=== PATIENT | female | born 1985 | race Caucasian/White ===

== ENCOUNTER 2019-02-02 20:44 | Inpatient (IN) | payer OTHER ==
[~2019-02-02] VITALS: Ht 154.9 cm; Wt 53.1 kg
[2019-02-02] MEDS ORDERED: SOD CHLORIDE 0.9% 1,000 ML IV STA (21:16)
[2019-02-02] MEDS ORDERED: ONDANSETRON 4 MG INJ IV STA ×2 (21:16→21:57)
[2019-02-02] MEDS ORDERED: morphine 4 MG/ML VIAL IV STA (21:16)
--- NOTE | 2019-02-02 21:17 | ERD ---
ER Documentation Chief Complaint Chief Complaint ABD PAIN WITH N/V X2DAYS HPI 33-year-old female presenting with severe epigastric pain that she states started today. The pain is stabbing, nonradiating, 10 out of 10, with associated nausea and nonbloody and nonbilious vomiting. No associated diarrhea or constipation. She does have a history of gastritis but is not on medications for this. She denies any fevers or chills. Patient is crying at this time. ROS All systems reviewed and are negative except as per history of present illness. Allergies Allergies: Coded Allergies: No Known Allergy (Unverified , 02/02/19) PMhx/Soc History of Surgery: No Anesthesia Reaction: No Hx Neurological Disorder: No Hx Respiratory Disorders: No Hx Cardiac Disorders: No Hx Psychiatric Problems: Yes (anxiety) Hx Miscellaneous Medical Probl: Yes (fibromyalgia, rheumatoid arthritis) Hx Alcohol Use: Yes Hx Substance Use: Yes (marijuana) Hx Tobacco Use: No FmHx Family History: No diabetes Physical Exam Vitals Vital Signs Date Temp Pulse Resp B/P (MAP) Pulse Ox O2 O2 Flow FiO2 Time Delivery Rate 02/02/19 98.5 109 19 147/64 99 20:47 (91) Physical Exam Const: Crying loudly, in distress due to pain, actively retching Head: Atraumatic Eyes: Normal Conjunctiva ENT: Normal External Ears, Nose and Mouth. Neck: Full range of motion. No meningismus. Resp: Clear to auscultation bilaterally Cardio: Regular rate and rhythm, no murmurs Abd: Soft, epigastric tenderness as well as right lower quadrant tenderness. No rebound or guarding. non distended. Normal bowel sounds Skin: No petechiae or rashes Back: No midline or flank tenderness Ext: No cyanosis, or edema Neur: Awake and alert Psych: Anxious, crying Result Diagram: 02/02/19212402/02/192124 Results 24 hrs Laboratory Tests Test 02/02/19 21:25 02/02/19 21:28 White Blood Count 11.2 10^3/ul Red Blood Count 4.60 10^6/ul Hemoglobin 13.9 g/dl Hematocrit 42.3 % Mean Corpuscular Volume 92.0 fl Mean Corpuscular Hemoglobin 30.2 pg Mean Corpuscular Hemoglobin Concent 32.9 g/dl Red Cell Distribution Width 12.6 % Platelet Count 330 10^3/UL Mean Platelet Volume 10.5 fl Immature Granulocytes % 0.400 % Neutrophils % 80.2 % Lymphocytes % 14.1 % Monocytes % 4.3 % Eosinophils % 0.4 % Basophils % 0.6 % Nucleated Red Blood Cells % 0.0 /100WBC Immature Granulocytes # 0.040 10^3/ul Neutrophils # 9.0 10^3/ul Lymphocytes # 1.6 10^3/ul Monocytes # 0.5 10^3/ul Eosinophils # 0.1 10^3/ul Basophils # 0.1 10^3/ul Nucleated Red Blood Cells # 0.0 10^3/ul Urine Color IVAN Urine Clarity CLOUDY Urine pH 7.0 Urine Specific [place] 1.029 Urine Ketones 2+ mg/dL Urine Nitrite NEGATIVE mg/dL Urine Bilirubin NEGATIVE mg/dL Urine Urobilinogen NEGATIVE mg/dL Urine Leukocyte Esterase 2+ Neftali/ul Urine Microscopic RBC 7 /HPF Urine Microscopic WBC 24 /HPF Urine Squamous Epithelial Cells MANY /HPF Urine Mucus MANY /HPF Urine Hemoglobin NEGATIVE mg/dL Urine Glucose NEGATIVE mg/dL Urine Total Protein 1+ mg/dl Sodium Level 139 mmol/L Potassium Level 3.6 mmol/L Chloride Level 101 mmol/L Carbon Dioxide Level 25 mmol/L Anion Gap 13 Blood Urea Nitrogen 11 mg/dl Creatinine 0.68 mg/dl Est Glomerular Filtrat Rate mL/min > 60 mL/min Glucose Level 181 mg/dl Calcium Level 9.7 mg/dl Total Bilirubin 0.3 mg/dl Direct Bilirubin 0.00 mg/dl Indirect Bilirubin 0.3 mg/dl Aspartate Amino Transf (AST/SGOT) 21 IU/L Alanine Aminotransferase (ALT/SGPT) 23 IU/L Alkaline Phosphatase 108 IU/L Total Protein 8.0 g/dl Albumin 4.6 g/dl Globulin 3.40 g/dl Albumin/Globulin Ratio 1.35 Lipase 30 U/L Ethyl Alcohol Level < 10.0 mg/dl POC Beta HCG, Qualitative NEGATIVE Current Medications Medications Dose Sig/Benja Start Time Status Last (Trade) Ordered Route PRN Stop Time Admin Dose Reason Admin Sodium 1,000 ml @ Q1H STAT 02/02/19 DC 02/02/19 Chloride 1,000 mls/hr IV 21:16 02/02/19 21:20 22:15 Morphine 4 mg ONCE STAT 02/02/19 DC 02/02/19 Sulfate IV 21:16 02/02/19 21:21 (morphine) 21:17 Ondansetron 4 mg ONCE STAT 02/02/19 DC 02/02/19 HCl (Zofran IV 21:16 02/02/19 21:21 Inj) 21:17 Ondansetron 4 mg ONCE STAT 02/02/19 DC 02/02/19 HCl (Zofran IV 21:57 02/02/19 21:56 Inj) 21:58 10 mg ONCE ONCE 02/02/19 DC 02/02/19 Metoclopramid IV 23:00 02/02/19 22:39 e HCl 23:01 (Reglan) Famotidine 20 mg ONCE ONCE 02/02/19 DC 02/02/19 (Pepcid Iv) IV 23:00 02/02/19 22:38 23:01 40 ml ONCE ONCE 02/02/19 DC Miscellaneous PO 23:30 02/02/19 Medication 23:31 (Gi Cocktail (2)) Ondansetron 4 mg BRIDGE ORDER 02/02/19 HCl (Zofran PRN IV 23:30 02/03/19 Inj) NAUSEA/VOMITI 23:29 NG 650 mg ER BRIDGE 02/02/19 Acetaminophen PRN PO 23:30 02/03/19 (Tylenol .MILD PAIN 23:29 Tab) 1-3 OR TEMP 10 mg Q6 IV 02/03/19 Metoclopramid 00:00 e HCl (Reglan) Ondansetron 4 mg Q4H PRN 02/02/19 HCl (Zofran IV NAUSEA 23:30 Inj) AND/OR VOMITING 40 mg DAILY@06 02/03/19 Pantoprazole IV 06:00 (Protonix Iv) Sodium 1,000 ml @ Q10H IV 02/02/19 Chloride 100 mls/hr 23:11 IV Flush 3 ml PER 02/02/19 (NS 3 ml) PROTOCOL IV 23:30 650 mg Q6H PRN 02/02/19 Acetaminophen PO .PAIN 1-3 23:30 (Tylenol OR TEMP Tab) Morphine 2 mg Q4H PRN 02/02/19 Sulfate IV .PAIN 23:30 (morphine) 7-10 Docusate 100 mg Q12H PRN 02/02/19 Sodium PO 23:30 (Colace) .CONSTIPATION Bisacodyl 5 mg DAILY PRN 4/7/19 (Dulcolax) PO 23:30 .CONSTIPATION Haloperidol 2 mg ONCE ONCE 02/02/19 DC 02/02/19 (Haldol) IV 23:30 02/02/19 23:31 23:31 Procedures/MDM EMERGENT LABS AND DIAGNOSTIC STUDIES: Lab Results above were reviewed and interpreted by me. CBC: no anemia or evidence of infection CMP: No evidence of clinically significant electrolyte abnormality, acidosis, renal failure, hypoglycemia, liver disease, or biliary obstruction Lipase: no evidence of pancreatitis UA: Signs of possible infection, however the patient is asymptomatic Radiology Results as interpreted by Radiology below were reviewed by Abdiel Justice MD: CT abdomen and pelvis shows no acute abnormalities Initial Nursing notes reviewed. Previous Medical Records requested via the Electronic Health Record. EMERGENCY DEPARTMENT COURSE / MEDICAL DECISION MAKING: Patient is presenting with a severe epigastric abdominal pain with associated vomiting. She was given multiple doses of antiemetics with analgesics and IV fluids. However her symptoms persisted. Her pain had improved, however the vo miting is continuous and not controllable with medications. This may be secondary to chronic marijuana use as well as gastritis. CT does not show any acute abnormalities. Labs are unremarkable. However the patient will require admission for IV hydration, bowel rest, and treatment of her intractable vomiting. Accepting Care Team: Current data and ongoing care discussed. Time: Time of admission Primary Provider: Dr. Kamran Lee Diagnosis: Primary Impression: Abdominal pain Abdominal location: epigastric Qualified Codes: R10.13 - Epigastric pain Additional Impression: Intractable vomiting Vomiting type: unspecified Nausea presence: with nausea Qualified Codes: R11.2 - Nausea with vomiting, unspecified Condition: DANAE Owens MD Feb 02, 2019 21:17
[2019-02-02] MEDS ORDERED: FAMOTIDINE 20 MG INJ IV ONE (23:00)
[2019-02-02] MEDS ORDERED: METOCLOPRAMIDE 10 MG INJ IV ONE (23:00)
[2019-02-02] MEDS ORDERED: LIDOCAINE/MYLANTA 40 ML BTL PO ONE (23:30)
[2019-02-02] MEDS ORDERED: morphine 2 MG INJ IV PRN (23:30)
[2019-02-02] MEDS ORDERED: HALOPERIDOL 5 MG INJ IV ONE (23:30)
[2019-02-02] MEDS ORDERED: NACL 0.9% 3 ML SYG IV SCH (23:30)
[2019-02-02] MEDS ORDERED: BISACODYL (EC) 5 MG TAB PO PRN (23:30)
[2019-02-02] MEDS ORDERED: DOCUSATE SODIUM 100 MG CAP PO PRN (23:30)
[2019-02-02] MEDS ORDERED: ONDANSETRON 4 MG INJ IV PRN ×2 (23:30)
[2019-02-02] MEDS ORDERED: ACETAMINOPHEN 325 MG TAB PO PRN ×2 (23:30)
--- NOTE | 2019-02-02 23:39 | HP ---
Date/Time of Note Date/Time of Note DATE: 02/02/19 TIME: 23:39 Assessment/Plan VTE Prophylaxis SCD applied (from Nsg): Yes Pharmacological prophylaxis: NA/contraindicated Pharm contraindication: low risk/ambulating Lines/Catheters IV Catheter Type (from Nrsg): Peripheral IV Assessment/Plan Hospital Course This is a 33-year-old female being admitted to the [facility] floor for observation for: #1 abdominal pain with intractable nausea and vomiting: Differential includes dyspepsia, PUD, cyclic vomiting syndrome from possible marijuana use. Patient does have tenderness palpation over the epigastric area, CT scan does not show any acute outer maladies. She does report a history of acid reflux. At the current time will treat with a GI doc cocktail, Protonix. Zofran and Reglan for nausea. Liquid diet as tolerated. Will consult GI for possible endoscopy. Will check a urine drug screen. #2 history of GERD: Protonix, see 1. #3 rheumatoid arthritis: Follow-up outpatient campus recruiter. #4 anxiety: PRN Debbi, I did discuss having a psych consultation as an inpatient however the patient does not want one at the current time. Would benefit from a repeat discussion in the a.m. regarding this. #5 DVT GI prophylaxis: SCDs, no GI prophylaxis indicated Result Diagram: 02/02/19212402/02/192124 Results 24hrs Laboratory Tests Test 02/02/19 21:25 02/02/19 21:28 White Blood Count 11.2 H Red Blood Count 4.60 Hemoglobin 13.9 Hematocrit 42.3 Mean Corpuscular Volume 92.0 Mean Corpuscular Hemoglobin 30.2 Mean Corpuscular Hemoglobin Concent 32.9 Red Cell Distribution Width 12.6 Platelet Count 330 Mean Platelet Volume 10.5 H Immature Granulocytes % 0.400 Neutrophils % 80.2 H Lymphocytes % 14.1 L Monocytes % 4.3 Eosinophils % 0.4 Basophils % 0.6 Nucleated Red Blood Cells % 0.0 Immature Granulocytes # 0.040 H Neutrophils # 9.0 H Lymphocytes # 1.6 Monocytes # 0.5 Eosinophils # 0.1 Basophils # 0.1 Nucleated Red Blood Cells # 0.0 Urine Color IVAN Urine Clarity CLOUDY A Urine pH 7.0 Urine Specific [place] 1.029 Urine Ketones 2+ H Urine Nitrite NEGATIVE Urine Bilirubin NEGATIVE Urine Urobilinogen NEGATIVE Urine Leukocyte Esterase 2+ H Urine Microscopic RBC 7 H Urine Microscopic WBC 24 H Urine Squamous Epithelial Cells MANY A Urine Mucus MANY A Urine Hemoglobin NEGATIVE Urine Glucose NEGATIVE Urine Total Protein 1+ H Sodium Level 139 Potassium Level 3.6 Chloride Level 101 Carbon Dioxide Level 25 Anion Gap 13 Blood Urea Nitrogen 11 Creatinine 0.68 Est Glomerular Filtrat Rate mL/min > 60 Glucose Level 181 Calcium Level 9.7 Total Bilirubin 0.3 Direct Bilirubin 0.00 Indirect Bilirubin 0.3 Aspartate Amino Transf (AST/SGOT) 21 Alanine Aminotransferase (ALT/SGPT) 23 Alkaline Phosphatase 108 Total Protein 8.0 Albumin 4.6 Globulin 3.40 H Albumin/Globulin Ratio 1.35 Lipase 30 Ethyl Alcohol Level < 10.0 H POC Beta HCG, Qualitative NEGATIVE HPI/ROS Admit Date/Time Admit Date/Time Hx of Present Illness Chief complaint: Abdominal pain times 2 days 33-year-old female presenting with severe epigastric pain that she states started today. The pain is stabbing, nonradiating, 10 out of 10, with associated nausea and nonbloody and nonbilious vomiting. No associated diarrhea or constipation. She does have a history of gastritis but is not on medications for this. She denies any fevers or chills. Patient is crying at this time. Patient also does report some dysuria. Patient does report that she smokes marijuana but she states that she does not do it on a regular basis. She does have a history of rheumatoid arthritis and was previously on Enbrel Allergies: NKDA Medications: See LILLI Const: As per HPI Eyes : No pain discharge or redness or change in visual acuity ENT: No pain, sore throat, congestion, congestion, dysphagia or discharge Respiratory: No shortness of breath, cough, sputum, wheezing, or pleuritic pain Cardiovascular: No chest pain, palpitation, PND, or edema GI : As per HPI Genitourinary: As per HPI Musculoskeletal: No joint pain, back pain, neck pain, restricted range of motion in neck or joints Skin: No rash, bruising or hives Neuro: No headache, dizziness, syncope, seizure, focal weakness Endocrine: No polyuria, polydipsia, temperature intolerance Psych: As per HPI PMH/Family/Social Past Medical History Rheumatoid arthritis, acid reflux Medications Current Medications Ondansetron HCl (Zofran Inj) 4 mg BRIDGE ORDER PRN IV NAUSEA/VOMITING; Start 02/02/19 at 23:30; Stop 02/03/19 at 23:29 Acetaminophen (Tylenol Tab) 650 mg ER BRIDGE PRN PO .MILD PAIN 1-3 OR TEMP; Start 02/02/19 at 23:30; Stop 02/03/19 at 23:29 Metoclopramide HCl (Reglan) 10 mg Q6 IV ; Start 02/03/19 at 00:00 Ondansetron HCl (Zofran Inj) 4 mg Q4H PRN IV NAUSEA AND/OR VOMITING; Start 02/02/19 at 23:30 Pantoprazole (Protonix Iv) 40 mg DAILY@06 IV ; Start 02/03/19 at 06:00 Sodium Chloride 1,000 ml @ 100 mls/hr Q10H IV ; Start 02/02/19 at 23:11 IV Flush (NS 3 ml) 3 ml PER PROTOCOL IV ; Start 02/02/19 at 23:30 Acetaminophen (Tylenol Tab) 650 mg Q6H PRN PO .PAIN 1-3 OR TEMP; Start 02/02/19 at 23:30 Morphine Sulfate (morphine) 2 mg Q4H PRN IV .PAIN 7-10; Start 02/02/19 at 23:30 Docusate Sodium (Colace) 100 mg Q12H PRN PO .CONSTIPATION; Start 02/02/19 at 23:30 Bisacodyl (Dulcolax) 5 mg DAILY PRN PO .CONSTIPATION; Start 02/02/19 at 23:30 Coded Allergies: No Known Allergy (Unverified , 02/02/19) Past Surgical History Past Surgical Hx: no surgical history Family History Significant Family History: no pertinent family hx Social History Alcohol Use: none Smoking Status: Never smoker Drug Use: marijuana Exam/Review of Systems Vital Signs Vitals Vital Signs Date Temp Pulse Resp B/P (MAP) Pulse Ox O2 O2 Flow FiO2 Time Delivery Rate 02/02/19 16 122/71 95 Room Air 23:34 (88) 02/02/19 98.5 109 20:47 Exam Exam General: Lying in bed emotional, she is crying states that she feels anxious. HEENT: Atraumatic, normocephalic. The pupils are equal, round and reactive. Extraocular motor are intact Neck: Supple with full range of motion. No rigidity or meningismus Chest: Nontender Lungs: Clear to auscultation bilaterally no crackles rales or wheezing Heart: Normal S1-S2, Regular rhythm and rate. No murmur, S3, or S4 Abdomen: Soft , mild epigastric tenderness palpation, mild suprapubic tenderness palpation nontender, nondistended , bowel sounds are present. No guarding no rebound tenderness , No masses or organomegaly. No costovertebral temporal angle mass Extremities: Normal to inspection, no edema no cyanosis Neurologic: Normal mental status, speech normal, cranial nerves II through XII are intact, motor and sensory are intact, Additional Comments PROCEDURE: CT Abdomen and Pelvis without contrast. CLINICAL INDICATION: Abdominal pain. TECHNIQUE: CT scan of the abdomen and pelvis was performed on a multi-detector high-resolution CT scanner. The patient was scanned without contrast administration. Coronal and sagittal reformatted images were obtained from the axial source images. Images were reviewed on a high-resolution PACS workstation. The total exam CTDI equals 5 mGy and the total exam DLP equals 256 mGy-cm. DICOM images are available. 3-D reconstructions were not performed. One or more of the following dose reduction techniques were utilized: 1.) Automated exposure control 2.) Adjustment of the mA +/- kV according to patient's size 3.) Use of iterative reconstruction technique. COMPARISON: None. FINDINGS: CT abdomen: Heart (where visible): Unremarkable. Lung bases: Calcified granuloma in the right middle lobe. Liver: Mildly enlarged measuring 17.9 cm in length with a a relatively large left lobe as well.. No visible focal mass. Biliary ductal system: No evidence of significant dilatation. Gallbladder: No wall thickening, visible intraluminal stone, or pericholecystic inflammatory change. Pancreas: Unremarkable. Stomach: No identifiable focal mass or gross wall thickening. Spleen: No gross splenomegaly. Abdominal colon: Normal in caliber and course. Abdominal small bowel: Normal in caliber, course, and mucosal pattern. Adrenal glands: No visible masses. Right Kidney: Normal in size and contour without focal mass or collecting system dilatation. No visible calcifications. Left kidney: Normal in size and contour without focal mass or collecting system dilatation. No visible calcifications. Abdominal aorta: Normal caliber. Lymph nodes: No significantly enlarged nodes. CT pelvis: Pelvic colon: Normal in caliber and course. No evidence of inflammatory change. Pelvic small bowel: Normal in caliber and course. Appendix: Identified. No evidence of inflammation. Urinary bladder: Normal in size and contour without visible wall thickening. Reproductive structures: The uterus is normal in size. There is no evidence of significant adnexal mass or cyst. There is a minimal amount of free fluid in the left posterior pelvis, within physiologic limits of normal. Bony structures included in the scan: No clinically significant abnormalities. IMPRESSION: 1. 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 2. Mild hepatomegaly. 3. Otherwise unremarkable CT of the abdomen and pelvis with no evidence of bowel obstruction, bowel perforation, urinary tract stone, urinary tract obstruction, or focal inflammatory process. RPTAT:AAJJ Physician Franca Date Time Electronically viewed and signed by Physician Franca on 02/02/2019 22:26 GW/ CC: DANAE LIZ MD [id number] JOHN PAUL RANGEL Feb 02, 2019 23:39
[2019-02-03] VITALS: BP 120/63; PULSE 68; RESP 18; Ht 154.9 cm; Wt 53.1 kg
[2019-02-03] MEDS: METOCLOPRAMIDE 10 MG INJ IV SCH ×3 (00:20→11:53)
[2019-02-03] MEDS: SOD CHLORIDE 0.9% 1,000 ML IV SCH ×4 (00:20→21:51)
[2019-02-03 02:00] VITALS: BP 105/67; PULSE 59; RESP 18
[2019-02-03] MEDS ORDERED: LORAZEPAM 2 MG INJ IV ONE (05:00)
[2019-02-03] MEDS: PANTOPRAZOLE 40 MG INJ IV SCH (05:05)
[2019-02-03 07:20] VITALS: BP 111/62; PULSE 62; RESP 19
[2019-02-03] MEDS ORDERED: CEFTRIAXONE 1 GM/50 ML (PMX) 50 ML IVPB ONE (07:30)
[2019-02-03] MEDS ORDERED: LORAZEPAM 0.5 MG TAB PO PRN (09:00)
--- NOTE | 2019-02-03 12:14 | PN ---
Date/Time of Note Date/Time of Note DATE: 02/03/19 TIME: 12:09 Assessment/Plan VTE Prophylaxis Risk score (from Nsg)>0 risk: 1 SCD applied (from Nsg): Yes Pharmacological prophylaxis: other Lines/Catheters IV Catheter Type (from Nrs): Saline Lock Assessment/Plan Hospital Course S: Patient still with nausea and vomiting symptoms, denies any upper or lower GI bleeding. Waiting to be seen by GI team. O: VS - see below PE: General: Lying in bed, less emotional now, family member at bedside HEENT: Atraumatic, normocephalic. The pupils are equal, round and reactive. Extraocular motor are intact Neck: Supple with full range of motion. No rigidity or meningismus Chest: Nontender Lungs: Clear to auscultation bilaterally no crackles rales or wheezing Heart: Normal S1-S2, Regular rhythm and rate. No murmur, S3, or S4 Abdomen: Soft , mild epigastric tenderness palpation, mild suprapubic tenderness palpation nontender, nondistended , bowel sounds are present. No guarding no rebound tenderness , No masses or organomegaly. No costovertebral temporal angle mass Extremities: Normal to inspection, no edema no cyanosis Neurologic: No focal deficits A/P: 33-year-old female being [facility] for observation for: #1 abdominal pain with intractable nausea and vomiting: Differential includes dyspepsia, PUD, cyclic vomiting syndrome from possible marijuana use. Patient does have tenderness palpation over the epigastric area, CT scan does not show any acute outer maladies. She does report a history of acid reflux. Drug screen showed positive marijuana and opiates. -Continue IV fluids, Protonix. Zofran and Reglan for nausea. N.p.o. for now. -Follow recommendations from GI team for possible endoscopy. #2 history of GERD: Protonix, see 1. #3 rheumatoid arthritis: Follow-up outpatient territory representative. #4 anxiety: Monitor, PRN Ativan -If worsens, consider psychiatry consult Result Diagram: 02/03/19 0433 02/03/19 0433 Results 24hrs Laboratory Tests Test 02/02/19 21:25 02/02/19 21:28 02/03/19 04:30 02/03/19 04:33 White Blood Count 11.2 H 11.2 H Red Blood Count 4.60 4.15 L Hemoglobin 13.9 12.5 Hematocrit 42.3 38.2 Mean Corpuscular Volume 92.0 92.0 Mean Corpuscular 30.2 30.1 Hemoglobin Mean Corpuscular 32.9 32.7 Hemoglobin Concent Red Cell Distribution 12.6 13.0 Width Platelet Count 330 258 # Mean Platelet Volume 10.5 H 10.9 H Immature Granulocytes % 0.400 0.300 Neutrophils % 80.2 H 95.7 H Lymphocytes % 14.1 L 3.1 L Monocytes % 4.3 0.7 Eosinophils % 0.4 0.0 Basophils % 0.6 0.2 Nucleated Red Blood 0.0 0.0 Cells % Immature Granulocytes # 0.040 H 0.030 Neutrophils # 9.0 H 10.7 H Lymphocytes # 1.6 0.4 L Monocytes # 0.5 0.1 L Eosinophils # 0.1 0.0 Basophils # 0.1 0.0 Nucleated Red Blood 0.0 0.0 Cells # Urine Color IVAN Urine Clarity CLOUDY A Urine pH 7.0 Urine Specific [place] 1.029 Urine Ketones 2+ H Urine Nitrite NEGATIVE Urine Bilirubin NEGATIVE Urine Urobilinogen NEGATIVE Urine Leukocyte Esterase 2+ H Urine Microscopic RBC 7 H Urine Microscopic WBC 24 H Urine Squamous MANY A Epithelial Cells Urine Mucus MANY A Urine Hemoglobin NEGATIVE Urine Glucose NEGATIVE Urine Total Protein 1+ H Sodium Level 139 139 Potassium Level 3.6 4.7 Chloride Level 101 105 Carbon Dioxide Level 25 24 Anion Gap 13 10 Blood Urea Nitrogen 11 9 Creatinine 0.68 0.58 Est Glomerular Filtrat > 60 > 60 Rate mL/min Glucose Level 181 168 Calcium Level 9.7 8.8 Total Bilirubin 0.3 0.3 Direct Bilirubin 0.00 0.00 Indirect Bilirubin 0.3 0.3 Aspartate Amino 21 20 Transf (AST/SGOT) Alanine 23 16 Aminotransferase (ALT/SG PT) Alkaline Phosphatase 108 83 Total Protein 8.0 7.0 # Albumin 4.6 4.1 Globulin 3.40 H 2.90 Albumin/Globulin Ratio 1.35 1.41 Lipase 30 Ethyl Alcohol Level < 10.0 H POC Beta HCG, NEGATIVE Qualitative Free Thyroxine 0.92 Free Triiodothyronine 3.14 (T3) pg/mL Hemoglobin A1c 5.1 Magnesium Level 1.9 Triglycerides Level 95 Cholesterol Level 132 LDL Cholesterol, 43 Calculated HDL Cholesterol 70 Cholesterol/HDL Ratio 1.8 Thyroid Stimulating 0.457 L Hormone (TSH) Test 02/03/19 04:45 Urine Opiates Screen Positive Urine Barbiturates Negative Urine Amphetamines Negative Screen Urine Benzodiazepines Negative Screen Urine Cocaine Screen Negative Urine Cannabinoids Positive Exam/Review of Systems Exam Vitals Vital Signs Date Temp Pulse Resp B/P (MAP) Pulse Ox O2 O2 Flow FiO2 Time Delivery Rate 02/03/19 97.2 62 19 111/62 98 07:20 (78) 02/02/19 Room Air 23:39 Intake and Output 02/02/19 02/02/19 02/03/19 1515:00 23:00 07:00 IntakeIntake Total 450 ml BalanceBalance 450 ml Results Results 24hrs Laboratory Tests Test 02/02/19 21:25 02/02/19 21:28 02/03/19 04:30 02/03/19 04:33 White Blood Count 11.2 H 11.2 H Red Blood Count 4.60 4.15 L Hemoglobin 13.9 12.5 Hematocrit 42.3 38.2 Mean Corpuscular Volume 92.0 92.0 Mean Corpuscular 30.2 30.1 Hemoglobin Mean Corpuscular 32.9 32.7 Hemoglobin Concent Red Cell Distribution 12.6 13.0 Width Platelet Count 330 258 # Mean Platelet Volume 10.5 H 10.9 H Immature Granulocytes % 0.400 0.300 Neutrophils % 80.2 H 95.7 H Lymphocytes % 14.1 L 3.1 L Monocytes % 4.3 0.7 Eosinophils % 0.4 0.0 Basophils % 0.6 0.2 Nucleated Red Blood 0.0 0.0 Cells % Immature Granulocytes # 0.040 H 0.030 Neutrophils # 9.0 H 10.7 H Lymphocytes # 1.6 0.4 L Monocytes # 0.5 0.1 L Eosinophils # 0.1 0.0 Basophils # 0.1 0.0 Nucleated Red Blood 0.0 0.0 Cells # Urine Color IVAN Urine Clarity CLOUDY A Urine pH 7.0 Urine Specific [place] 1.029 Urine Ketones 2+ H Urine Nitrite NEGATIVE Urine Bilirubin NEGATIVE Urine Urobilinogen NEGATIVE Urine Leukocyte Esterase 2+ H Urine Microscopic RBC 7 H Urine Microscopic WBC 24 H Urine Squamous MANY A Epithelial Cells Urine Mucus MANY A Urine Hemoglobin NEGATIVE Urine Glucose NEGATIVE Urine Total Protein 1+ H Sodium Level 139 139 Potassium Level 3.6 4.7 Chloride Level 101 105 Carbon Dioxide Level 25 24 Anion Gap 13 10 Blood Urea Nitrogen 11 9 Creatinine 0.68 0.58 Est Glomerular Filtrat > 60 > 60 Rate mL/min Glucose Level 181 168 Calcium Level 9.7 8.8 Total Bilirubin 0.3 0.3 Direct Bilirubin 0.00 0.00 Indirect Bilirubin 0.3 0.3 Aspartate Amino 21 20 Transf (AST/SGOT) Alanine 23 16 Aminotransferase (ALT/SG PT) Alkaline Phosphatase 108 83 Total Protein 8.0 7.0 # Albumin 4.6 4.1 Globulin 3.40 H 2.90 Albumin/Globulin Ratio 1.35 1.41 Lipase 30 Ethyl Alcohol Level < 10.0 H POC Beta HCG, NEGATIVE Qualitative Free Thyroxine 0.92 Free Triiodothyronine 3.14 (T3) pg/mL Hemoglobin A1c 5.1 Magnesium Level 1.9 Triglycerides Level 95 Cholesterol Level 132 LDL Cholesterol, 43 Calculated HDL Cholesterol 70 Cholesterol/HDL Ratio 1.8 Thyroid Stimulating 0.457 L Hormone (TSH) Test 02/03/19 04:45 Urine Opiates Screen Positive Urine Barbiturates Negative Urine Amphetamines Negative Screen Urine Benzodiazepines Negative Screen Urine Cocaine Screen Negative Urine Cannabinoids Positive Medications Medication Current Medications Metoclopramide HCl (Reglan) 10 mg Q6 IV Last administered on 02/03/19at 11:53; Admin Dose 10 MG; Start 02/03/19 at 00:00 Ondansetron HCl (Zofran Inj) 4 mg Q4H PRN IV NAUSEA AND/OR VOMITING Last administered on 02/03/19at 10:43; Admin Dose 4 MG; Start 02/02/19 at 23:30 Pantoprazole (Protonix Iv) 40 mg DAILY@06 IV Last administered on 02/03/19at 05:05; Admin Dose 40 MG; Start 02/03/19 at 06:00 Sodium Chloride 1,000 ml @ 100 mls/hr Q10H IV Last administered on 02/03/19at 00:20; Admin Dose 100 MLS/HR; Start 02/02/19 at 23:11 IV Flush (NS 3 ml) 3 ml PER PROTOCOL IV ; Start 02/02/19 at 23:30 Acetaminophen (Tylenol Tab) 650 mg Q6H PRN PO .PAIN 1-3 OR TEMP; Start 02/02/19 at 23:30 Morphine Sulfate (morphine) 2 mg Q4H PRN IV .PAIN 7-10; Start 02/02/19 at 23:30 Docusate Sodium (Colace) 100 mg Q12H PRN PO .CONSTIPATION; Start 02/02/19 at 23:30 Bisacodyl (Dulcolax) 5 mg DAILY PRN PO .CONSTIPATION; Start 02/02/19 at 23:30 Lorazepam (Ativan) 0.5 mg BID PRN PO ANXIETY; Start 02/03/19 at 09:00 Ceftriaxone Sodium 50 ml @ 100 mls/hr Q24H IVPB ; Start 02/04/19 at 09:00 ROSALINDA WILSON Feb 03, 2019 12:14
[2019-02-03] MEDS ORDERED: CEFTRIAXONE 1 GM/50 ML (PMX) 50 ML IVPB SCH (12:30)
[2019-02-03] MEDS ORDERED: ONDANSETRON INJ 8 MG in SOD CHLORIDE 0.9% 50 ML IV PRN (12:30)
[2019-02-03 15:12] VITALS: BP 118/58; PULSE 58; RESP 18
--- NOTE | 2019-02-03 16:24 | CONS ---
Assessment/Plan Assessment/Plan Hospital Course (Demo Recall) Summary Assessment and Plan: Assessment: Epigastric pain associate with nausea and vomiting -Rule out severe gastritis versus cannabinoid induced cyclic vomiting syndrome his other UTI Marijuana use Plan: Continue PPI Pt on ABX for UTI N.p.o. except ice chips Continue supportive measures EGD tomorrow Endoscopy - risks/benefits/alternatives/indications of procedure and sedation/anesthesia discussed with patient who states understanding and gives informed consent to proceed. Patient seen in collaboration with Dr. Chong CC: LUCERO CHONG MD ; Consultation Date/Type/Reason Admit Date/Time Date of Consultation: Feb 03, 2019 Type of Consult GI Reason for Consultation Epigastric pain with associated N/V Date/Time of Note DATE: 02/03/19 TIME: 16:09 Hx of Present Illness This is a 33-year-old patient with a past medical history of gastritis, and rheumatoid arthritis. Who presented to the ED with complaints of severe epiga stric pain today with nausea nonbloody vomiting times 1 day. She has been consulted for further evaluation. Patient notes she smokes marijuana every other day for the past 5 years she states she has had similar symptoms in the past and had an upper endoscopy about 2 years ago found to have gastritis. She currently denies overt signs of GI bleed i.e. melena, hematemesis, or hematochezia. She additionally denies constipation, unintentional weight loss, or diarrhea. She continues to complain of severe epigastric pain worse with palpation she does take NSAIDs about once a month during her menses. With workup and found to have a UTI has been started on antibiotics which may play a role with nausea and vomiting however unlikely causing epigastric pain we will need to rule out GI etiology therefore we will plan to do EGD tomorrow I reviewed risk/benefits of both procedure and sedation patient verbalized understanding is agreeable to EGD. Review of Systems: A 12 system, review was conducted and is negative except as noted in the HPI or here. Past Medical History Medications Current Medications Pantoprazole (Protonix Iv) 40 mg DAILY@06 IV Last administered on 02/03/19at 05:05; Admin Dose 40 MG; Start 02/03/19 at 06:00 Sodium Chloride 1,000 ml @ 100 mls/hr Q10H IV Last administered on 02/03/19at 16:02; Admin Dose 100 MLS/HR; Start 02/02/19 at 23:11 IV Flush (NS 3 ml) 3 ml PER PROTOCOL IV ; Start 02/02/19 at 23:30 Acetaminophen (Tylenol Tab) 650 mg Q6H PRN PO .PAIN 1-3 OR TEMP; Start 02/02/19 at 23:30 Docusate Sodium (Colace) 100 mg Q12H PRN PO .CONSTIPATION; Start 02/02/19 at 23:30 Bisacodyl (Dulcolax) 5 mg DAILY PRN PO .CONSTIPATION; Start 02/02/19 at 23:30 Lorazepam (Ativan) 0.5 mg BID PRN PO ANXIETY; Start 02/03/19 at 09:00 Ceftriaxone Sodium 50 ml @ 100 mls/hr Q24H IVPB ; Start 02/04/19 at 09:00 Metoclopramide HCl (Reglan) 10 mg Q6 PRN IV NAUSEA; Start 02/03/19 at 12:30 Morphine Sulfate (morphine) 1 mg Q4H PRN IV .PAIN 7-10; Start 02/03/19 at 15:30 Ondansetron HCl 8 mg/Sodium Chloride 54 ml @ 216 mls/hr Q6H PRN IV NAUSEA AND/OR VOMITING; Start 02/03/19 at 12:30 Allergies: Coded Allergies: No Known Allergy (Unverified , 02/02/19) Past Surgical History Past Surgical Hx: no surgical history Social History Alcohol Use: none Smoking Status: Never smoker Drug Use: marijuana Exam/Review of Systems Exam Vitals Vital Signs Date Temp Pulse Resp B/P (MAP) Pulse Ox O2 O2 Flow FiO2 Time Delivery Rate 02/03/19 58 18 118/58 96 15:12 (78) 02/03/19 97.2 07:20 02/02/19 Room Air 23:39 Intake and Output 02/02/19 02/02/19 02/03/19 1515:00 23:00 07:00 IntakeIntake Total 450 ml BalanceBalance 450 ml Exam PHYSICAL EXAMINATION: GENERAL: Alert & oriented x 3, in no acute distress SKIN: No lesions HEAD: Normocephalic, atraumatic, no tenderness. EYES: Pupils equal reactive to light, no discharge. EARS/NOSE AND THROAT: Ears normal, nose normal. NECK: Supple, no masses CHEST: Inspection within normal limits. CARDIOVASCULAR: Heart: Regular rate and rhythm RESPIRATORY: Lungs clear to auscultation GASTROINTESTINAL AND LIVER: Abdomen: Soft, epigastric pain, non-distended, no hernias, no masses, no organomegaly, no ascites, no guarding, no rebound tenderness, normoactive bowel sounds. Rectal: Deferred. EXTREMITIES: No cyanosis, clubbing or edema. Results Result Diagram: 02/03/19 0433 02/03/19 0433 Results 24hrs Laboratory Tests Test 02/02/19 21:25 02/02/19 21:28 02/03/19 04:30 02/03/19 04:33 White Blood Count 11.2 H 11.2 H Red Blood Count 4.60 4.15 L Hemoglobin 13.9 12.5 Hematocrit 42.3 38.2 Mean Corpuscular Volume 92.0 92.0 Mean Corpuscular 30.2 30.1 Hemoglobin Mean Corpuscular 32.9 32.7 Hemoglobin Concent Red Cell Distribution 12.6 13.0 Width Platelet Count 330 258 # Mean Platelet Volume 10.5 H 10.9 H Immature Granulocytes % 0.400 0.300 Neutrophils % 80.2 H 95.7 H Lymphocytes % 14.1 L 3.1 L Monocytes % 4.3 0.7 Eosinophils % 0.4 0.0 Basophils % 0.6 0.2 Nucleated Red Blood 0.0 0.0 Cells % Immature Granulocytes # 0.040 H 0.030 Neutrophils # 9.0 H 10.7 H Lymphocytes # 1.6 0.4 L Monocytes # 0.5 0.1 L Eosinophils # 0.1 0.0 Basophils # 0.1 0.0 Nucleated Red Blood 0.0 0.0 Cells # Urine Color IVAN Urine Clarity CLOUDY A Urine pH 7.0 Urine Specific [place] 1.029 Urine Ketones 2+ H Urine Nitrite NEGATIVE Urine Bilirubin NEGATIVE Urine Urobilinogen NEGATIVE Urine Leukocyte Esterase 2+ H Urine Microscopic RBC 7 H Urine Microscopic WBC 24 H Urine Squamous MANY A Epithelial Cells Urine Mucus MANY A Urine Hemoglobin NEGATIVE Urine Glucose NEGATIVE Urine Total Protein 1+ H Sodium Level 139 139 Potassium Level 3.6 4.7 Chloride Level 101 105 Carbon Dioxide Level 25 24 Anion Gap 13 10 Blood Urea Nitrogen 11 9 Creatinine 0.68 0.58 Est Glomerular Filtrat > 60 > 60 Rate mL/min Glucose Level 181 168 Calcium Level 9.7 8.8 Total Bilirubin 0.3 0.3 Direct Bilirubin 0.00 0.00 Indirect Bilirubin 0.3 0.3 Aspartate Amino 21 20 Transf (AST/SGOT) Alanine 23 16 Aminotransferase (ALT/SG PT) Alkaline Phosphatase 108 83 Total Protein 8.0 7.0 # Albumin 4.6 4.1 Globulin 3.40 H 2.90 Albumin/Globulin Ratio 1.35 1.41 Lipase 30 Ethyl Alcohol Level < 10.0 H POC Beta HCG, NEGATIVE Qualitative Free Thyroxine 0.92 Free Triiodothyronine 3.14 (T3) pg/mL Hemoglobin A1c 5.1 Magnesium Level 1.9 Triglycerides Level 95 Cholesterol Level 132 LDL Cholesterol, 43 Calculated HDL Cholesterol 70 Cholesterol/HDL Ratio 1.8 Thyroid Stimulating 0.457 L Hormone (TSH) Test 02/03/19 04:45 Urine Opiates Screen Positive Urine Barbiturates Negative Urine Amphetamines Negative Screen Urine Benzodiazepines Negative Screen Urine Cocaine Screen Negative Urine Cannabinoids Positive Medications Medication Current Medications Pantoprazole (Protonix Iv) 40 mg DAILY@06 IV Last administered on 02/03/19at 05:05; Admin Dose 40 MG; Start 02/03/19 at 06:00 Sodium Chloride 1,000 ml @ 100 mls/hr Q10H IV Last administered on 02/03/19at 16:02; Admin Dose 100 MLS/HR; Start 02/02/19 at 23:11 IV Flush (NS 3 ml) 3 ml PER PROTOCOL IV ; Start 02/02/19 at 23:30 Acetaminophen (Tylenol Tab) 650 mg Q6H PRN PO .PAIN 1-3 OR TEMP; Start 02/02/19 at 23:30 Docusate Sodium (Colace) 100 mg Q12H PRN PO .CONSTIPATION; Start 02/02/19 at 23:30 Bisacodyl (Dulcolax) 5 mg DAILY PRN PO .CONSTIPATION; Start 02/02/19 at 23:30 Lorazepam (Ativan) 0.5 mg BID PRN PO ANXIETY; Start 02/03/19 at 09:00 Ceftriaxone Sodium 50 ml @ 100 mls/hr Q24H IVPB ; Start 02/04/19 at 09:00 Metoclopramide HCl (Reglan) 10 mg Q6 PRN IV NAUSEA; Start 02/03/19 at 12:30 Morphine Sulfate (morphine) 1 mg Q4H PRN IV .PAIN 7-10; Start 02/03/19 at 15:30 Ondansetron HCl 8 mg/Sodium Chloride 54 ml @ 216 mls/hr Q6H PRN IV NAUSEA AND/OR VOMITING; Start 02/03/19 at 12:30 HERMILO BEAR Feb 03, 2019 16:19
[2019-02-03] MEDS ORDERED: ONDANSETRON 4 MG INJ IV PRN (17:30)
--- NOTE | 2019-02-03 17:41 | PREAC ---
Date/Time of Note Date/Time of Note DATE: 02/03/19 TIME: 17:41 Anesthesia Eval and Record Evaluation Time Pre-Procedure Interview DATE: 02/03/19 TIME: 17:41 Age 33 Sex female NPO: 8 hrs Preoperative diagnosis nausea / vomiting Planned procedure EGD Past Medical History Past Medical History: Includes GI: GERD Psych: Anxiety Surgery & Anesthesia Issues No known issue Meds Anticoagulation: No Beta Rosita within 24 hr: No Reason Beta Rosita not given: Pt. not on B-Rosita Current Medications Pantoprazole (Protonix Iv) 40 mg DAILY@06 IV Last administered on 02/03/19at 05:05; Admin Dose 40 MG; Start 02/03/19 at 06:00 Sodium Chloride 1,000 ml @ 100 mls/hr Q10H IV Last administered on 02/03/19at 16:02; Admin Dose 100 MLS/HR; Start 02/02/19 at 23:11 IV Flush (NS 3 ml) 3 ml PER PROTOCOL IV ; Start 02/02/19 at 23:30 Acetaminophen (Tylenol Tab) 650 mg Q6H PRN PO .PAIN 1-3 OR TEMP; Start 02/02/19 at 23:30 Docusate Sodium (Colace) 100 mg Q12H PRN PO .CONSTIPATION; Start 02/02/19 at 23:30 Bisacodyl (Dulcolax) 5 mg DAILY PRN PO .CONSTIPATION; Start 02/02/19 at 23:30 Lorazepam (Ativan) 0.5 mg BID PRN PO ANXIETY; Start 02/03/19 at 09:00 Ceftriaxone Sodium 50 ml @ 100 mls/hr Q24H IVPB ; Start 02/04/19 at 09:00 Metoclopramide HCl (Reglan) 10 mg Q6 PRN IV NAUSEA; Start 02/03/19 at 12:30 Morphine Sulfate (morphine) 1 mg Q4H PRN IV .PAIN 7-10; Start 02/03/19 at 15:30 Ondansetron HCl 8 mg/Sodium Chloride 54 ml @ 216 mls/hr Q6H PRN IV NAUSEA AND/OR VOMITING; Start 02/03/19 at 12:30 Meds reviewed: Yes Allergies Coded Allergies: No Known Allergy (Unverified , 02/02/19) Allergies Reviewed: Yes Labs/Studies Labs Reviewed: Reviewed by anesthesiologist Result Diagram: 02/03/19 0433 02/03/19 0433 Laboratory Tests 02/03/19 04:33 test: Negative Pre-procedure Exam Last vitals Vital Signs Date Temp Pulse Resp B/P (MAP) Pulse Ox O2 O2 Flow FiO2 Time Delivery Rate 02/03/19 58 18 118/58 96 15:12 (78) 02/03/19 97.2 07:20 02/02/19 Room Air 23:39 Airway: Adequate mouth opening Mallampati: Mallampati II Teeth: Normal Lung: Normal Heart: Normal ASA Physical Status ASA physical status: 2 Emergency: None Planned Anesthetic General/MAC: MAC Pre-operative Attestations Prior to commencing anesthesia and surgery, the patient was re-evaluated, there was verification of: *The patient's identity *The results of appropriate recent lab work and preoperative vital signs *The above evaluation not changing prior to induction *Anesthetic plan, risk benefits, alternative and complications discussed with patient/family; questions answered; patient/family understands, accepts and w ishes to proceed. GRACE SCHRADER Feb 03, 2019 17:41
[2019-02-03 20:35] VITALS: BP 130/70; PULSE 70; RESP 18
[2019-02-03] MEDS: METOCLOPRAMIDE 10 MG INJ IV PRN (21:46)
[2019-02-04] VITALS (11 sets, daily range): BP systolic 125–143; BP diastolic 73–87; PULSE 58–92; RESP 15–18
[2019-02-04] MEDS: PANTOPRAZOLE 40 MG INJ IV SCH (06:09)
[2019-02-04] MEDS: METOCLOPRAMIDE 10 MG INJ IV PRN ×2 (06:09→12:02)
[2019-02-04] MEDS: SOD CHLORIDE 0.9% 1,000 ML IV SCH ×2 (07:07→22:55)
[2019-02-04] MEDS: morphine 2 MG INJ IV PRN ×2 (08:42→22:55)
[2019-02-04] MEDS: CEFTRIAXONE 1 GM/50 ML (PMX) 50 ML IVPB SCH (08:45)
--- NOTE | 2019-02-04 11:09 | PN ---
Date/Time of Note Date/Time of Note DATE: 02/04/19 TIME: 11:07 Assessment/Plan VTE Prophylaxis Risk score (from Nsg)>0 risk: 0 SCD applied (from Nsg): Yes Pharmacological prophylaxis: other Lines/Catheters IV Catheter Type (from Nrsg): Peripheral IV Assessment/Plan Hospital Course S: Patient still with occasional emesis episodes, seen by GI team yesterday. Tentatively scheduled for EGD later today. O: VS - see below PE: General: Lying in bed, NAD HEENT: Atraumatic, normocephalic. The pupils are equal, round and reactive. Extraocular motor are intact Neck: Supple with full range of motion. No rigidity or meningismus Chest: Nontender Lungs: Clear to auscultation bilaterally no crackles rales or wheezing Heart: Normal S1-S2, Regular rhythm and rate. No murmur, S3, or S4 Abdomen: Soft , mild epigastric tenderness palpation, mild suprapubic tenderness palpation nontender, nondistended , bowel sounds are present. No guarding no rebound tenderness , No masses or organomegaly. No costovertebral temporal angle mass Extremities: Normal to inspection, no edema no cyanosis Neurologic: No focal deficits A/P: 33-year-old [facility] for: #1 abdominal pain with intractable nausea and vomiting: Differential includes dyspepsia, PUD, cyclic vomiting syndrome from possible marijuana use. Patient on admission did have tenderness palpation over the epigastric area, CT scan does not show any acute outer maladies. She does report a history of acid reflux. Drug screen showed positive marijuana and opiates. -Continue IV fluids, Protonix. Zofran and Reglan for nausea, add as needed Tigan. N.p.o. for now. -Follow recommendations from GI team - for possible endoscopy later today as well #2 history of GERD: Protonix, see 1. #3 rheumatoid arthritis: Follow-up outpatient conventional underwriter. #4 anxiety: Patient was emotional on admission, less so now - monitor, PRN Ativan -If worsens, consider psychiatry consult Result Diagram: 02/04/19 0422 02/04/19 0422 Results 24hrs Laboratory Tests Test 02/04/19 04:22 White Blood Count 9.8 Red Blood Count 4.24 Hemoglobin 12.8 Hematocrit 39.2 Mean Corpuscular Volume 92.5 Mean Corpuscular Hemoglobin 30.2 Mean Corpuscular Hemoglobin Concent 32.7 Red Cell Distribution Width 13.2 Platelet Count 279 Mean Platelet Volume 11.4 H Immature Granulocytes % 0.300 Neutrophils % 82.3 H Lymphocytes % 12.0 L Monocytes % 5.1 Eosinophils % 0.0 Basophils % 0.3 Nucleated Red Blood Cells % 0.0 Immature Granulocytes # 0.030 Neutrophils # 8.1 H Lymphocytes # 1.2 Monocytes # 0.5 Eosinophils # 0.0 Basophils # 0.0 Nucleated Red Blood Cells # 0.0 Sodium Level 137 Potassium Level 4.1 Chloride Level 104 Carbon Dioxide Level 23 Anion Gap 10 Blood Urea Nitrogen 9 Creatinine 0.54 Est Glomerular Filtrat Rate mL/min > 60 Glucose Level 117 # Calcium Level 8.6 Phosphorus Level 2.8 Magnesium Level 2.0 Total Bilirubin 0.3 Direct Bilirubin 0.00 Indirect Bilirubin 0.3 Aspartate Amino Transf (AST/SGOT) 18 Alanine Aminotransferase (ALT/SGPT) 21 Alkaline Phosphatase 80 Total Protein 6.6 Albumin 3.8 Globulin 2.80 Albumin/Globulin Ratio 1.35 Exam/Review of Systems Exam Vitals Vital Signs Date Temp Pulse Resp B/P (MAP) Pulse Ox O2 O2 Flow FiO2 Time Delivery Rate 02/04/19 99.6 86 18 126/73 96 02:45 (90) 02/02/19 Room Air 23:39 Intake and Output 02/03/19 02/03/19 02/04/19 1515:00 23:00 07:00 IntakeIntake Total 50 ml 1450 ml 850 ml OutputOutput Total 100 ml BalanceBalance 50 ml 1450 ml 750 ml Results Results 24hrs Laboratory Tests Test 02/04/19 04:22 White Blood Count 9.8 Red Blood Count 4.24 Hemoglobin 12.8 Hematocrit 39.2 Mean Corpuscular Volume 92.5 Mean Corpuscular Hemoglobin 30.2 Mean Corpuscular Hemoglobin Concent 32.7 Red Cell Distribution Width 13.2 Platelet Count 279 Mean Platelet Volume 11.4 H Immature Granulocytes % 0.300 Neutrophils % 82.3 H Lymphocytes % 12.0 L Monocytes % 5.1 Eosinophils % 0.0 Basophils % 0.3 Nucleated Red Blood Cells % 0.0 Immature Granulocytes # 0.030 Neutrophils # 8.1 H Lymphocytes # 1.2 Monocytes # 0.5 Eosinophils # 0.0 Basophils # 0.0 Nucleated Red Blood Cells # 0.0 Sodium Level 137 Potassium Level 4.1 Chloride Level 104 Carbon Dioxide Level 23 Anion Gap 10 Blood Urea Nitrogen 9 Creatinine 0.54 Est Glomerular Filtrat Rate mL/min > 60 Glucose Level 117 # Calcium Level 8.6 Phosphorus Level 2.8 Magnesium Level 2.0 Total Bilirubin 0.3 Direct Bilirubin 0.00 Indirect Bilirubin 0.3 Aspartate Amino Transf (AST/SGOT) 18 Alanine Aminotransferase (ALT/SGPT) 21 Alkaline Phosphatase 80 Total Protein 6.6 Albumin 3.8 Globulin 2.80 Albumin/Globulin Ratio 1.35 Medications Medication Current Medications Pantoprazole (Protonix Iv) 40 mg DAILY@06 IV Last administered on 02/04/19at 06:09; Admin Dose 40 MG; Start 02/03/19 at 06:00 Sodium Chloride 1,000 ml @ 100 mls/hr Q10H IV Last administered on 02/04/19at 07:07; Admin Dose 100 MLS/HR; Start 02/02/19 at 23:11 IV Flush (NS 3 ml) 3 ml PER PROTOCOL IV ; Start 02/02/19 at 23:30 Acetaminophen (Tylenol Tab) 650 mg Q6H PRN PO .PAIN 1-3 OR TEMP; Start 02/02/19 at 23:30 Docusate Sodium (Colace) 100 mg Q12H PRN PO .CONSTIPATION; Start 02/02/19 at 23:30 Bisacodyl (Dulcolax) 5 mg DAILY PRN PO .CONSTIPATION; Start 02/02/19 at 23:30 Lorazepam (Ativan) 0.5 mg BID PRN PO ANXIETY; Start 02/03/19 at 09:00 Ceftriaxone Sodium 50 ml @ 100 mls/hr Q24H IVPB Last administered on 02/04/19at 08:45; Admin Dose 100 MLS/HR; Start 02/04/19 at 09:00 Metoclopramide HCl (Reglan) 10 mg Q6 PRN IV NAUSEA Last administered on 02/04/19at 06:09; Admin Dose 10 MG; Start 02/03/19 at 12:30 Morphine Sulfate (morphine) 1 mg Q4H PRN IV .PAIN 7-10 Last administered on 02/04/19at 08:42; Admin Dose 1 MG; Start 02/03/19 at 15:30 Ondansetron HCl 8 mg/Sodium Chloride 54 ml @ 216 mls/hr Q6H PRN IV NAUSEA AND /OR VOMITING; Start 02/03/19 at 12:30 ROSALINDA WILSON Feb 04, 2019 11:09
[2019-02-04] MEDS ORDERED: TRIMETHOBENZAMIDE 100 MG/ML VIAL IM PRN (11:30)
[2019-02-04] MEDS ORDERED: PROPOFOL 20 ML ONE (13:48)
[2019-02-04] MEDS ORDERED: NICOTINE (21 MG/24 HR) PATCH TRANSDERM SCH (14:00)
[2019-02-04] MEDS: METOCLOPRAMIDE 10 MG INJ IV SCH ×3 (14:30→22:55)
--- NOTE | 2019-02-04 14:48 | PAC ---
Date/Time of Note Date/Time of Note DATE: 02/04/19 TIME: 14:47 Post-Anesthesia Notes Post-Anesthesia Note Last documented vital signs Vital Signs Date Temp Pulse Resp B/P (MAP) Pulse Ox O2 O2 Flow FiO2 Time Delivery Rate 02/04/19 98.2 72 18 128/76 98 14:23 (93) 02/04/19 Room Air 14:07 Activity: WNL Respiratory function: WNL Cardiovascular function: WNL Mental status: Baseline Pain reasonably controlled: Yes Hydration appropriate: Yes Nausea/Vomiting absent: Yes DEVIN LOPEZ MD Feb 04, 2019 14:48
--- NOTE | 2019-02-04 15:13 | HPN ---
Date/Time of Note Date/Time of Note DATE: 02/04/19 Interval H&P Admission Note Pt. seen H&P reviewed: No system changes LUCERO MUELLER MD Feb 04, 2019 15:13
[2019-02-05 02:27] VITALS: BP 118/74; PULSE 63; RESP 16
[2019-02-05] MEDS: METOCLOPRAMIDE 10 MG INJ IV SCH ×2 (06:07→12:42)
[2019-02-05] MEDS: PANTOPRAZOLE 40 MG INJ IV SCH (06:07)
[2019-02-05 07:33] VITALS: BP 124/81; PULSE 70; RESP 18
[2019-02-05] MEDS: CEFTRIAXONE 1 GM/50 ML (PMX) 50 ML IVPB SCH (09:24)
--- NOTE | 2019-02-05 11:03 | PDOCDIS ---
Discharge Instructions CONDITION [id number] Patient Condition: [id number] Stable HOME CARE INSTRUCTIONS: [id number] Diet Instructions: [id number] Regular ACTIVITY: [id number] Activity Restrictions: [id number] Slowly Increase Activity Rest between Activity Avoid heavy lifting FOLLOW UP/APPOINTMENTS Follow-up Plan Please take your medications as prescribed, see your doctor in the clinic in the next 1 week. ROSALINDA WILSON Feb 05, 2019 11:03
[2019-02-05] MEDS ORDERED: PANT40TA3 PO (11:05)
[2019-02-05] MEDS ORDERED: CIPR-193 PO (11:05)
[2019-02-05] MEDS ORDERED: METO5TAB58 PO (11:05)
--- NOTE | 2019-02-05 11:14 | DS ---
Date/Time of Note Date/Time of Note DATE: 02/05/19 TIME: 11:06 Discharge Summary Admission/Discharge Info Admit Date/Time Feb 04, 2019 at 08:10 Discharge Date/Time Discharge Diagnosis #1 abdominal pain with intractable nausea and vomiting: Secondary to mild esop hagitis and gastritis found on EGD, as well as marijuana use. #2 history of GERD #3 rheumatoid arthritis #4 anxiety #5 Marijuana use: Counseled on cessation #6 Simple UTI Patient Condition: Stable Procedures February 04, 2019: EGD: - Mild distal esophagitis and moderate gastritis Hx of Present Illness 33-year-old female presenting with severe epigastric pain that she states started today. The pain is stabbing, nonradiating, 10 out of 10, with associated nausea and nonbloody and nonbilious vomiting. No associated diarrhea or constipation. She does have a history of gastritis but is not on medications for this. She denies any fevers or chills. Patient is crying at this time. Patient also does report some dysuria. Patient does report that she smokes marijuana but she states that she does not do it on a regular basis. She does have a history of rheumatoid arthritis and was previously on [facility] Hospital Course Patient was admitted and seen by GI team while here in the hospital. She was placed on antiemetic medications which help control her nausea vomiting symptoms. She underwent EGD with findings of some mild esophagitis and gastritis. She was also counseled about marijuana use cessation as she was thought to also be having component of possible cyclic vomiting syndrome from excess marijuana use prior to admission. She was made n.p.o. on admission. After the EGD she was placed on diet which she appeared to tolerate. She has had less nausea vomiting symptoms now for the last 24 hours of her hospital stay. She is able to ambulate, vital signs are stable, labs are stable. Once we get clearance from GI team, if she is cleared she will be discharged home today in improved condition. She was also treated for simple UTI. See below for full list of discharge medications. Home Meds Active Scripts Ciprofloxacin Hcl* (Ciprofloxacin Hcl*) 250 Mg Tablet, 250 MG PO BID for 3 Days, #6 TAB Prov:DIANN WILSONYARIEL Herrera. 02/05/19 Metoclopramide* (Reglan*) 5 Mg Tablet, 5 MG PO AC MEALS for 30 Days, #90 TAB 1 Refill Prov:ROSALINDA WILSON S. 02/05/19 Pantoprazole* (Protonix*) 40 Mg Tablet.dr, 40 MG PO DAILY, #30 TAB 4 Refills Prov:ROSALINDA WILSON S. 02/05/19 Follow-up Plan Please take your medications as prescribed, see your doctor in the clinic in the next 1 week. Primary Care Provider Care Physician No Primary Time spent on discharge: > 30 minutes Pending Labs Laboratory Tests Test 02/05/19 04:29 02/05/19 04:30 White Blood Count 6.7 10^3/ul (4.8-10.8) Red Blood Count 4.03 10^6/ul (4.20-5.40) Hemoglobin 12.3 g/dl (12.0-16.0) Hematocrit 37.0 % (37.0-47.0) Mean Corpuscular Volume 91.8 fl (82.0-101.0) Mean Corpuscular Hemoglobin 30.5 pg (29.0-33.0) Mean Corpuscular 33.2 g/dl (32.0-37.0) Hemoglobin Concent Red Cell Distribution Width 12.6 % (11.5-14.5) Platelet Count 262 10^3/UL (140-415) Mean Platelet Volume 10.8 fl (7.4-10.4) Immature Granulocytes % 0.100 % (0.001-0.429) Neutrophils % 72.5 % (39.0-77.0) Lymphocytes % 19.2 % (15.0-51.0) Monocytes % 7.6 % (0.0-11.0) Eosinophils % 0.3 % (0.0-7.0) Basophils % 0.3 % (0.0-2.0) Nucleated Red Blood Cells % 0.0 /100WBC (0.0-0.0) Immature Granulocytes # 0.010 10^3/ul (0.0-0.031) Neutrophils # 4.9 10^3/ul (1.6-7.5) Lymphocytes # 1.3 10^3/ul (0.8-2.9) Monocytes # 0.5 10^3/ul (0.3-0.9) Eosinophils # 0.0 10^3/ul (0.0-0.5) Basophils # 0.0 10^3/ul (0.0-0.1) Nucleated Red Blood Cells # 0.0 10^3/ul (0.0-0.0) Phosphorus Level 3.0 mg/dl (2.5-4.9) Magnesium Level 2.1 mg/dl (1.7-2.5) Sodium Level 136 mmol/L (135-144) Potassium Level 4.0 mmol/L (3.5-5.1) Chloride Level 103 mmol/L (97-110) Carbon Dioxide Level 25 mmol/L (21-31) Anion Gap 8 (5-13) Blood Urea Nitrogen 8 mg/dl (7-20) Creatinine 0.56 mg/dl (0.44-1.00) Est Glomerular Filtrat > 60 mL/min (>60) Rate mL/min Glucose Level 106 mg/dl (70-220) Calcium Level 8.6 mg/dl (8.4-10.2) ROSALINDA WILSON Feb 05, 2019 11:14
--- NOTE | 2019-02-05 13:06 | PN ---
Date/Time of Note Date/Time of Note DATE: 02/05/19 TIME: 12:58 Assessment/Plan VTE Prophylaxis Risk score (from Ns)>0 risk: 0 SCD applied (from Ns): Yes Pharmacological prophylaxis: other (scds) Lines/Catheters IV C[facility]ter Type (from [facility]): Peripheral IV Urinary Cath still in place: No Assessment/Plan Hospital Course Summary Assessment and Plan: Assessment: Epigastric pain associate with nausea and vomiting EGD 02/04/19 Mild distal esophagitis Moderate gastritis. Rule out H. pylori, biopsies obtained Otherwise normal EGD Biopsies of body and antrum are negative for H. pylori bacteria or malignancy UTI Marijuana use Plan: Avoid marijuana PPI x 4 weeks then stop Pt cleared from GI point of view for out-pt management Patient seen in collaboration with Dr. Chong Subjective: Course reviewed with nursing staff Patient interviewed and examined All labs, imaging and other results reviewed The patient feels well, states she is ready to go home. She is tolerating PO intake without n/v. PHYSICAL EXAMINATION: GENERAL: Alert & oriented x 3, in no acute distress SKIN: No lesions HEAD: Normocephalic, atraumatic, no tenderness. EYES: Pupils equal reactive to light, no discharge. EARS/NOSE AND THROAT: Ears normal, nose normal. NECK: Supple, no masses CHEST: Inspection within normal limits. CARDIOVASCULAR: Heart: Regular rate and rhythm RESPIRATORY: Lungs clear to auscultation GASTROINTESTINAL AND LIVER: Abdomen: Soft, epigastric pain, non-distended, no hernias, no masses, no organomegaly, no ascites, no guarding, no rebound tenderness, normoactive bowel sounds. Rectal: Deferred. EXTREMITIES: No cyanosis, clubbing or edema. Result Diagram: 02/05/19 0429 02/05/19 0430 Results 24hrs Laboratory Tests Test 02/05/19 04:29 02/05/19 04:30 White Blood Count 6.7 # Red Blood Count 4.03 L Hemoglobin 12.3 Hematocrit 37.0 Mean Corpuscular Volume 91.8 Mean Corpuscular Hemoglobin 30.5 Mean Corpuscular Hemoglobin Concent 33.2 Red Cell Distribution Width 12.6 Platelet Count 262 Mean Platelet Volume 10.8 H Immature Granulocytes % 0.100 Neutrophils % 72.5 Lymphocytes % 19.2 Monocytes % 7.6 Eosinophils % 0.3 Basophils % 0.3 Nucleated Red Blood Cells % 0.0 Immature Granulocytes # 0.010 Neutrophils # 4.9 Lymphocytes # 1.3 Monocytes # 0.5 Eosinophils # 0.0 Basophils # 0.0 Nucleated Red Blood Cells # 0.0 Phosphorus Level 3.0 Magnesium Level 2.1 Sodium Level 136 Potassium Level 4.0 Chloride Level 103 Carbon Dioxide Level 25 Anion Gap 8 Blood Urea Nitrogen 8 Creatinine 0.56 Est Glomerular Filtrat Rate mL/min > 60 Glucose Level 106 Calcium Level 8.6 Exam/Review of Systems Exam Vitals Vital Signs Date Temp Pulse Resp B/P (MAP) Pulse Ox O2 O2 Flow FiO2 Time Delivery Rate 02/05/19 37.1 12:42 02/05/19 70 18 124/81 99 Room Air 07:33 (95) Intake and Output 02/04/19 02/04/19 02/05/19 1515:00 23:00 07:00 IntakeIntake Total 100 ml 1104 ml 600 ml OutputOutput Total 100 ml 100 ml BalanceBalance 0 ml 1004 ml 600 ml Results Results 24hrs Laboratory Tests Test 02/05/19 04:29 02/05/19 04:30 White Blood Count 6.7 # Red Blood Count 4.03 L Hemoglobin 12.3 Hematocrit 37.0 Mean Corpuscular Volume 91.8 Mean Corpuscular Hemoglobin 30.5 Mean Corpuscular Hemoglobin Concent 33.2 Red Cell Distribution Width 12.6 Platelet Count 262 Mean Platelet Volume 10.8 H Immature Granulocytes % 0.100 Neutrophils % 72.5 Lymphocytes % 19.2 Monocytes % 7.6 Eosinophils % 0.3 Basophils % 0.3 Nucleated Red Blood Cells % 0.0 Immature Granulocytes # 0.010 Neutrophils # 4.9 Lymphocytes # 1.3 Monocytes # 0.5 Eosinophils # 0.0 Basophils # 0.0 Nucleated Red Blood Cells # 0.0 Phosphorus Level 3.0 Magnesium Level 2.1 Sodium Level 136 Potassium Level 4.0 Chloride Level 103 Carbon Dioxide Level 25 Anion Gap 8 Blood Urea Nitrogen 8 Creatinine 0.56 Est Glomerular Filtrat Rate mL/min > 60 Glucose Level 106 Calcium Level 8.6 Medications Medication Current Medications Pantoprazole (Protonix Iv) 40 mg DAILY@06 IV Last administered on 02/05/19at 06:07; Admin Dose 40 MG; Start 02/03/19 at 06:00 Sodium Chloride 1,000 ml @ 100 mls/hr Q10H IV Last administered on 02/04/19 22:55; Admin Dose 100 MLS/HR; Start 02/02/19 at 23:11 IV Flush (NS 3 ml) 3 ml PER PROTOCOL IV ; Start 02/02/19 at 23:30 Acetaminophen (Tylenol Tab) 650 mg Q6H PRN PO .PAIN 1-3 OR TEMP Last administered on 02/05/19 12:42; Admin Dose 650 MG; Start 02/02/19 at 23:30 Docusate Sodium (Colace) 100 mg Q12H PRN PO .CONSTIPATION; Start 02/02/19 at 23:30 Bisacodyl (Dulcolax) 5 mg DAILY PRN PO .CONSTIPATION; Start 02/02/19 at 23:30 Lorazepam (Ativan) 0.5 mg BID PRN PO ANXIETY; Start 02/03/19 at 09:00 Ceftriaxone Sodium 50 ml @ 100 mls/hr Q24H IVPB Last administered on 02/05/19 09:24; Admin Dose 100 MLS/HR; Start 02/04/19 at 09:00 Morphine Sulfate (morphine) 1 mg Q4H PRN IV .PAIN 7-10 Last administered on 02/04/19 22:55; Admin Dose 1 MG; Start 02/03/19 at 15:30 Ondansetron HCl 8 mg/Sodium Chloride 54 ml @ 216 mls/hr Q6H PRN IV NAUSEA AND/OR VOMITING Last administered on 02/04/19 16:42; Admin Dose 216 MLS/HR; Start 02/03/19 at 12:30 Trimethobenzamide HCl (Tigan) 200 mg Q6H PRN IM NAUSEA AND/OR VOMITING Last administered on 02/04/19 13:10; Admin Dose 200 MG; Start 02/04/19 at 11:30 Metoclopramide HCl (Reglan) 10 mg Q6 IV Last administered on 02/05/19 12:42; Admin Dose 10 MG; Start 02/04/19 at 14:30 HERMILO BEAR Feb 05, 2019 13:05
== END 2019-02-05 14:26 | disposition home or self-care (01) | DRG 392 ==
LOC: E/R 20:44 → MS1 23:09 → OBSVTOIN 02-04 08:10
PROVIDERS: ADMIT Family Medicine; ATTEND Hospitalist
PROC: 0DJ08ZZ Inspection of Upper Intestinal Tract, Via Natural or Artificial Opening Endoscopic (ICD-10-PCS; principal; 2019-02-04 14:00)
DX: K21.0 Gastro-esophageal reflux disease with esophagitis (principal); N39.0 Urinary tract infection, site not specified; K29.70 Gastritis, unspecified, without bleeding; M06.9 Rheumatoid arthritis, unspecified; F41.9 Anxiety disorder, unspecified; R11.2 Nausea with vomiting, unspecified; K20.9 Esophagitis, unspecified; F12.90 Cannabis use, unspecified, uncomplicated
CPT/HCPCS: 36415; 74176; 80048; 80053; 80061; 80307; 81001; 81025; 83036; 83690; 83735; 84100; 84439; 84443; 84481; 85025; 88305; 88312; 96374; 96375; 96376; C9113; G0378; J0696; J1630; J2060; J2270; J2405; J2765; J3250; J7030

== ENCOUNTER 2019-06-11 12:16 | Emergency (ER) | payer OTHER ==
[~2019-06-11] VITALS: Ht 154.9 cm; Wt 51.3 kg
[~2019-06-11 12:16] MED LIST: BENZ-6 PO; CIPR-193 PO; D-ME473S2 PO; MED4DP PO; METO5TAB58 PO; ONDA4TAB14 PO; PANT40TA3 PO; PSEU60TA2 PO
[2019-06-11 12:32] VITALS: BP 96/55; PULSE 88; RESP 20; Ht 154.9 cm; Wt 51.3 kg
--- NOTE | 2019-06-11 15:09 | ERD ---
ER Documentation Chief Complaint Chief Complaint productive cough with yellowish greenish colored sputum x 3 days HPI 33-year-old female presenting with cough. Patient has greenish colored sputum for the last 3 days but denies any fevers. She had a mild runny nose and sore throat. She has not taken medications for her symptoms. Denies allergies to medications. Medical history is arthritis. Surgical history denies. Social history smokes marijuana occasionally. ROS All systems reviewed and are negative except as per history of present illness. Medications Home Meds Active Scripts Pseudoephedrine Hcl* (Pseudoephedrine Hcl*) 60 Mg Tablet, 60 MG PO Q6 PRN for CONGESTION, #30 TAB Prov:KELLY PINEDA PA-C 06/11/19 Methylprednisolone* (Medrol* DOSE PACK) 4 Mg/Dose-Pack Tab.ds.pk, 4 MG PO . DIRECTED, #1 PACKET Prov:KELLY PINEDA PA-C 06/11/19 Benzonatate* (Tessalon Perle*) 100 Mg Capsule, 100 MG PO Q8H PRN for COUGH, #30 CAP Prov:KELLY PINEDA PA-C 06/11/19 Dextromethorphan Hb-Promethazine Hcl* (Promethazine DM* Syrup) 473 Ml Syrup, 5 ML PO Q6 PRN for COUGH, #100 ML Prov:KELLY PINEDA PA-C 06/11/19 Ciprofloxacin Hcl* (Ciprofloxacin Hcl*) 250 Mg Tablet, 250 MG PO BID for 3 Days, #6 TAB Prov:ROSALINDA WILSON S. 02/05/19 Metoclopramide* (Reglan*) 5 Mg Tablet, 5 MG PO AC MEALS for 30 Days, #90 TAB 1 Refill Prov:ROSALINDA WILSON S. 02/05/19 Pantoprazole* (Protonix*) 40 Mg Tablet.dr, 40 MG PO DAILY, #30 TAB 4 Refills Prov:ROSALINDA WILSON S. 02/05/19 Allergies Allergies: Coded Allergies: No Known Allergy (Unverified , 02/02/19) PMhx/Soc Medical and Surgical Hx: pt denies Surgical Hx History of Surgery: No Anesthesia Reaction: No Hx Neurological Disorder: No Hx Respiratory Disorders: No Hx Cardiac Disorders: No Hx Psychiatric Problems: No Hx Miscellaneous Medical Probl: Yes (RA, GASTRITIS) Hx Alcohol Use: No Hx Substance Use: Yes (smokes medical marijuana) Hx Tobacco Use: No Smoking Status: Current every day smoker FmHx Family History: No diabetes, No coronary disease, No other Physical Exam Vitals Vital Signs Date Temp Pulse Resp B/P (MAP) Pulse Ox O2 O2 Flow FiO2 Time Delivery Rate 06/11/19 98.5 88 20 96/55 (69) 97 12:32 Physical Exam GENERAL: The patient is well-appearing, well-nourished, in no acute distress HEENT: Atraumatic. Conjunctivae are pink. Pupils equal, round, and reactive to light. There is no scleral icterus. Tympanic membranes clear bilaterally. Oropharynx clear. NECK: C-spine is soft and supple. There is no meningismus. There is no cervical lymphadenopathy. CHEST: Coarse breath sounds heard in lung tomas. No focal rhonchi. No wheezing HEART: Regular rate and rhythm. No murmurs, clicks, rubs or gallops. Procedures/MDM DIAGNOSTIC IMAGING REPORT Patient: JUNI PRADO : 1985 Age: 33 Sex: F MR #: [id number] DOS: 06/11/19 1248 Ordering MD: BIGG PINEDA PA-C Location: [facility] Room/Bed: PROCEDURE: XR Chest. CLINICAL INDICATION: Cough TECHNIQUE: Single portable view of the chest was obtained COMPARISON: No priors for comparison FINDINGS: The trachea is midline. The cardiac silhouette and pulmonary vascularity are within normal limits. The lungs are clear. The costophrenic angles are sharp. IMPRESSION: 1. No evidence of acute cardiopulmonary disease. MDM: 33-year-old female presenting with cough. I have low suspicion for pneumonia. I have low suspicion for respiratory distress or hypoxia. Patient is discharged with supportive medications and told to follow-up with primary care within 1 to 2 days for close evaluation. Patient does not require antibiotics at this time. Patient is told symptoms change or worsen to return to the ER. I have low suspicion for cardiac emergency. All questions answered at discharge Departure Diagnosis: Primary Impression: Cough Condition: Stable Patient Instructions: Cough, Chronic, Uncertain Cause, (Adult) Referrals: COMMUNITY CLINICS YOU HAVE RECEIVED A MEDICAL SCREENING EXAM AND THE RESULTS INDICATE THAT YOU DO NOT HAVE A CONDITION THAT REQUIRES URGENT TREATMENT IN THE EMERGENCY DEPARTMENT. FURTHER EVALUATION AND TREATMENT OF YOUR CONDITION CAN WAIT UNTIL YOU ARE SEEN IN YOUR DOCTORS OFFICE WITHIN THE NEXT 1-2 DAYS. IT IS YOUR RESPONSIBILITY TO MAKE AN APPOINTMENT FOR FOLOW-UP CARE. IF YOU HAVE A PRIMARY DOCTOR --you should call your primary doctor and schedule an appointment IF YOU DO NOT HAVE A PRIMARY DOCTOR YOU CAN CALL OUR PHYSICIAN REFERRAL HOTLINE AT IF YOU CAN NOT AFFORD TO SEE A PHYSICIAN YOU CAN CHOSE FROM THE FOLLOWING FORMERLY [facility], [facility] CL[facility]ICS [facility] [address] [facility] [address] [facility] [address] [facility] [address] [facility] [address] [address] [facility]. [address] Additional Instructions: FOLLOW UP WITH YOUR PRIMARY CARE PHYSICIAN TOMORROW.Return to this facility if you are not improving as expected. KELLY PINEDA PA-C Jun 11, 2019 15:09
== END 2019-06-11 13:54 | disposition home or self-care (01) ==
LOC: FTE 12:16
DX: R05 Cough (principal); F17.210 Nicotine dependence, cigarettes, uncomplicated
CPT/HCPCS: 71045

== ENCOUNTER 2019-06-13 22:11 | Emergency (ER) | payer OTHER ==
[~2019-06-13] VITALS: Ht 154.9 cm; Wt 51.1 kg
[2019-06-13 22:39] VITALS: Ht 154.9 cm; Wt 51.1 kg
[2019-06-13] MEDS ORDERED: LIDOCAINE/MYLANTA 40 ML BTL PO STA (23:54)
[2019-06-13] MEDS ORDERED: ONDANSETRON (ODT) 4 MG TAB ODT STA (23:54)
[2019-06-14 01:38] VITALS: BP 99/63; PULSE 85; RESP 14
== END 2019-06-14 01:46 | disposition home or self-care (01) ==
LOC: FTE 22:11
DX: R10.13 Epigastric pain (principal); R11.10 Vomiting, unspecified
CPT/HCPCS: 36415; 80053; 81001; 81025; 83690; 85025; 99283